=== PATIENT | male | born 1985 | race Caucasian/White ===

== ENCOUNTER 2023-03-08 09:14 | Emergency (ER) | payer OTHER ==
[2023-03-08] MEDS ORDERED: Ketorolac 60 MG/2 ML SDV IM ONE (09:28)
== END 2023-03-08 10:30 | disposition home or self-care (01) ==
LOC: JD.ED 09:14
DX: S83.92XA Sprain of unspecified site of left knee, initial encounter (principal); F17.210 Nicotine dependence, cigarettes, uncomplicated; X50.1XXA Overexertion from prolonged static or awkward postures, initial encounter
CPT/HCPCS: 73562; 96372; 99284; J1885; 99282